=== PATIENT | male | born 1960 | race Caucasian/White ===

== ENCOUNTER 2017-01-12 11:29 | Emergency (ER) | payer MEDICARE ==
[2017-01-12] MEDS ORDERED: Metoclopramide 10 MG/2 ML SDV IVPUSH ONE (11:38)
[2017-01-12] MEDS ORDERED: fentaNYL 100 MCG/2 ML SDV IVPUSH ONE (11:38)
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
[2017-01-12] MEDS ORDERED: Sodium Chloride 0.9% 1,000 ML IV SCH (11:45)
[2017-01-12] MEDS ORDERED: Nitroglycerin/D5W 25 MG/250 ML BOTTLE IV SCH (11:45)
[2017-01-12 17:10] VITALS: BP 111/83
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
== END 2017-01-12 16:05 | disposition home or self-care (01) ==
LOC: JD.ED 11:29
DX: R07.89 Other chest pain (principal); I11.0 Hypertensive heart disease with heart failure; I50.9 Heart failure, unspecified; M19.90 Unspecified osteoarthritis, unspecified site; E11.9 Type 2 diabetes mellitus without complications; J44.9 Chronic obstructive pulmonary disease, unspecified; E66.9 Obesity, unspecified; Z79.01 Long term (current) use of anticoagulants; Z79.899 Other long term (current) drug therapy; Z95.2 Presence of prosthetic heart valve; Z68.42 Body mass index [BMI] 45.0-49.9, adult
CPT/HCPCS: 36415; 71010; 80053; 80306; 81001; 82550; 82553; 83036; 83735; 83880; 84484; 85025; 85610; 86140; 93005; 96365; 96366; 96375; 99285; J2765; J3010; J7040; 99284